=== PATIENT | female | born 1955 | race Hispanic/Latino ===

== ENCOUNTER → 2020-04-25 | Outpatient (CLI) | payer MEDICARE | LOC: MAMMO 10:28 | PROVIDERS: ATTEND Specialist | DX: Z12.31 Encounter for screening mammogram for malignant neoplasm of breast (principal); Z13.820 Encounter for screening for osteoporosis; Z78.0 Asymptomatic menopausal state | CPT/HCPCS: 77067; 77080 ==

== ENCOUNTER → 2021-01-05 | Outpatient (CLI) | payer MEDICARE | LOC: MAMMO 12:45 | PROVIDERS: ATTEND Specialist | DX: Z12.31 Encounter for screening mammogram for malignant neoplasm of breast (principal); Z78.0 Asymptomatic menopausal state ==